=== PATIENT | male | born 1960 | race Caucasian/White ===

== ENCOUNTER 2017-03-08 20:21 | Emergency (ER) | payer MEDICAID ==
[2017-03-08] MEDS ORDERED: predniSONE 20 MG TAB PO ONE (20:30)
[2017-03-08] MEDS ORDERED: diphenhydrAMINE 25 MG CAP PO ONE (20:30)
[2017-03-08] MEDS ORDERED: FAMOTIDINE 20 MG TAB PO ONE (20:30)
--- NOTE | 2017-03-08 20:33 | EDPHY ---
H & P Stated Complaint: periorbital swelling and itchiness since 10am after rubbing sunscreen - Personal History Current Tetanus Diphtheria and Acellular Pertussis (TDAP): Yes - Medical/Surgical History Hx Asthma: No Hx Chronic Respiratory Disease: No Hx Diabetes: No Hx Cardiac Disease: No Hx Renal Disease: No Hx Cirrhosis: No Hx Alcoholism: No Hx HIV/AIDS: No Hx Splenectomy or Spleen Trauma: No Other PMH: denies - Social History Smoking Status: Heavy smoker Time Seen by Provider: 03/08/17 20:25 HPI/ROS: CHIEF COMPLAINT: periorbital edema HISTORY OF PRESENT ILLNESS: 56-year-old homeless male arrives via ambulance complaining of periorbital edema after he rubbed sunscreen onto his face and accidentally got some into his eyes this morning. He notes that he has had this periorbital edema for the whole day however [facility] they called 911. At no point has experienced respiratory complaints. No abdominal pain. No nausea or vomiting. No pain with extraocular movements. No exposure to high speed projectiles. No visual acuity changes. PRIMARY CARE PROVIDER: [facility] REVIEW OF SYSTEMS: A ten point review of systems was performed and is negative with the exception of the items mentioned in the HPI PAST MEDICAL & SURGICAL HISTORY: No pertinent medical or surgical history SOCIAL HISTORY:homeless PHYSICAL EXAM (Prior to examination, patient consented to physical exam, hands were washed and my usual and customary physical exam procedures followed) 1) GENERAL: Well-developed, well-nourished, alert and oriented. Appears to be in no acute distress. 2) HEAD: Normocephalic, atraumatic 3) HEENT: bilateral periorbital edema noted with no induration no erythema. Extraocular movements are present with no pain with extraocular movements, no proptosis. No facial crepitus. No lesions no vesicles. Pupils equal, round, reactive to light bilaterally. Sclera anicteric. Nasopharynx, oropharynx, clear, no lesions. Ears bilaterally with normal tympanic membranes. 4) NECK: Full range of motion, no meningeal signs. 5) LUNGS: Clear auscultation bilaterally, no wheezes, no rhonchi, no retractions. 6) HEART: Regular rate and rhythm, no murmur, no heave, no gallop. 7) ABDOMEN: No guarding, no rebound, no focal tenderness, 8) MUSCULOSKELETAL: No peripheral edema or discoloration. 9) BACK: no visual or palpable abnormality. 10) SKIN: No rash, no petechiae. DIFFERENTIAL DIAGNOSIS: no particular include but limited to contact dermatitis, anaphylaxis, urticaria, angioedema (Fly Lerma) Constitutional: Initial Vital Signs Temperature (C) 36.8 C 03/08/17 20:26 Heart Rate 84 03/08/17 20:26 Respiratory Rate 18 03/08/17 20:26 Blood Pressure 113/74 03/08/17 20:26 O2 Sat (%) 95 03/08/17 20:26 O2 Delivery Mode Room Air Allergies/Adverse Reactions: No Known Allergies Allergy (Unverified 03/08/17 20:26) Home Medications: Medication Instructions Recorded predniSONE [Prednisone] 20 mg PO DAILY #9 tablet 03/08/17 Medical Decision Making ED Course/Re-evaluation: 8:30 p.m.: Patient will be given oral H1 H2 blockers, prednisone observed in the ER for period of time. Do not think that epinephrine currently indicated. Doubt angioedema. I think his symptoms are more likely secondary to localized contact dermatitis. 9 p.m.: Re-evaluation, feeling improvement.lungs clear bilaterally 9:30 p.m.: Re-evaluation, feeling improvement, lungs clear bilaterally 10:01 p.m.: Re-evaluation, Feeling improvement, lungs clear bilaterally, doubt anaphylaxis, doubt urticaria, doubt infectious etiology such as cellulitis or zoster. Recommend caution with topical products in the future. He feels comfortable being discharged. (Fly Lerma) Other Provider: The patient was evaluated and managed by the Physician [employer]er/ Nurse Practitioner. My co-signature indicates that I have reviewed this chart and I agree with the findings and plan of care as documented. I am the secondary supervising physician. (Aura Yates) - Data Points Medications Given: Discontinued Medications Diphenhydramine HCl (Benadryl) 50 mg PO EDNOW ONE Stop: 03/08/17 20:31 Last Admin: 03/08/17 20:35 Dose: 50 mg Famotidine (Pepcid) 40 mg PO EDNOW ONE Stop: 03/08/17 20:31 Last Admin: 03/08/17 20:36 Dose: 40 mg Prednisone (Prednisone) 60 mg PO EDNOW ONE Stop: 03/08/17 20:31 Last Admin: 03/08/17 20:34 Dose: 60 mg Departure - Departure Disposition: Home, Routine, Self-Care Clinical Impression: Contact dermatitis Qualifiers: Contact dermatitis type: irritant Contact dermatitis trigger: cosmetics Qualified Code(s): L24.3 - Irritant contact dermatitis due to cosmetics Condition: Good Instructions: Contact Dermatitis (ED) Additional Instructions: Return to the ER if you develop pain with eye movement, facial swelling, redness or abnormal warmth your face, skin lesions, or any other symptoms that concern you. Please be cautious with application of topical products. Referrals: [facility],. [Clinic] - 1-2 days without fail Prescriptions: predniSONE [Prednisone] 20 mg PO DAILY #9 tablet
[2017-03-08] MEDS ORDERED: FAMOTIDINE 20 MG TAB ONE (20:37)
[2017-03-08 23:09] VITALS: BP 124/86; PULSE 82; RESP 20; TEMP 97.9; O2SAT 94
== END 2017-03-08 22:18 | disposition home or self-care (01) ==
DX: L24.3 Irritant contact dermatitis due to cosmetics (principal); F17.200 Nicotine dependence, unspecified, uncomplicated

== ENCOUNTER 2017-06-05 09:13 | Emergency (ER) | payer MEDICAID ==
[~2017-06-05 09:13] MED LIST: PERMETHRIN 5% 60 GM CREAM TP SCH
[2017-06-05 09:33] VITALS: BP 214/198; PULSE 86; RESP 16; TEMP 98.2; O2SAT 94
--- NOTE | 2017-06-05 10:03 | EDPHY ---
H & P Time Seen by Provider: 06/05/17 09:49 HPI/ROS: CHIEF COMPLAINT: Skin rash HISTORY OF PRESENT ILLNESS: Itchy skin rash for a week and half. Torso and arms but not palms and soles. Patient wonders if he might have scabies. No fever or chills. REVIEW OF SYSTEMS: No cough or shortness of breath. No tongue or lip or throat swelling. No fevers or chills. Has open wound on the left small I and 4th toes. A comprehensive 10 point review of systems is otherwise negative aside from elements mentioned in the history of present illness. PAST MEDICAL HISTORY: Negative Social history: Staying at shelters General Appearance: Alert and conversant, cooperative. Eyes: No scleral icterus. ENT, Mouth: Normal mucous membranes. No angioedema or oral lesions. Respiratory: Normal respiratory effort, breath sounds equal, lungs are clear to auscultation. Cardiovascular: Regular rate and rhythm. Gastrointestinal: Abdomen is soft and non tender. Neurological: Alert and oriented x3. Normally conversant. Face symmetric, normal movement and sensation in all extremities. Skin: Patient is scattered excoriations, linear fashion across his abdomen, no vesicles. No erythema or tenderness to palpation or lymphangitis. Confluent in a couple of areas in his torso but not on his hands or feet or below his knees. He is to shallow open wounds on the lateral surface of his left small and 4th toe to appear from rubbing against issue with do not have pus or discharge or surrounding redness or lymphangitis. Musculoskeletal: No peripheral edema and no joint swelling. Psychiatric: Not agitated. Emergency Department course/MDM: Does not appear to have cellulitis. I think it is unlikely to be zoster or chickenpox. Unlikely to be folliculitis. Skin rash could be multiple things, scabies discussed as possibility. Will trial of Elimite, advised primary care follow-up if continues to have rash , mandatory for hypertension. Smoking Status: Heavy smoker Constitutional: Initial Vital Signs Temperature (C) 36.8 C 06/05/17 09:31 Heart Rate 86 06/05/17 09:31 Respiratory Rate 16 06/05/17 09:31 Blood Pressure 214/198 H 06/05/17 09:31 O2 Sat (%) 94 06/05/17 09:31 O2 Delivery Mode Room Air Allergies/Adverse Reactions: No Known Allergies Allergy (Unverified 03/08/17 20:26) Home Medications: Medication Instructions Recorded predniSONE [Prednisone] 20 mg PO DAILY #9 tablet 03/08/17 Permethrin 5% [Elimite 5%] 1 jose TP ONCE #1 cream 06/05/17 Departure - Departure Disposition: Home, Routine, Self-Care Clinical Impression: Skin rash Hypertension Qualifiers: Hypertension type: unspecified Qualified Code(s): I10 - Essential (primary) hypertension Condition: Good Instructions: Permethrin (On the skin), Scabies (ED), Acute Rash (ED) Additional Instructions: wash clothes hot water. followup clinic 1 week for blood pressure and rash Referrals: [facility],. [Clinic] - 5-7 days, call for appt. Prescriptions: Permethrin 5% [Elimite 5%] 1 jose TP ONCE #1 cream
== END 2017-06-05 10:33 | disposition home or self-care (01) ==
DX: R21 Rash and other nonspecific skin eruption (principal); I10 Essential (primary) hypertension; F17.200 Nicotine dependence, unspecified, uncomplicated

== ENCOUNTER 2017-06-08 17:19 | Emergency (ER) | payer MEDICAID ==
[2017-06-08 17:27] VITALS: RESP 18; O2SAT 94
--- NOTE | 2017-06-08 17:32 | EDPHY ---
HPI/HX/ROS/PE/MDM Narrative: CHIEF COMPLAINT: Fall HISTORY OF PRESENT ILLNESS: This patient is a 57 year old male arriving via EMS following a witnessed fall shortly prior to arrival. Per EMS report, a bystander saw him fall face-first into a peaked rock near the [place]. Positive loss of consciousness. The patient sustained lacerations to his forehead and scalp, but EMS noted no other trauma on rapid exam. The patient endorsed consumption of one pint of alcohol today. EMS reports the patient has foot numbness, but this is chronic and unchanged from usual. The patient endorses head and neck pain. He denies any illicit drug use. He has no further complaints at this time. Of note the patient was recently evaluated in this emergency department and treated for scabies. He reports he has not taken the treatment for scabies. He continues to have active scabies. REVIEW OF SYSTEMS: Aside from elements discussed in the HPI, a comprehensive 10-point review of systems was reviewed and is negative. PAST MEDICAL HISTORY: 1. Scabies 2. Alcoholism SOCIAL HISTORY: Transient. Lives in [place]. Heavy alcohol use. VITAL SIGNS: Reviewed by me; see NN. GENERAL: Well-developed, well-nourished, disheveled, clothing has been removed by EMS. No respiratory distress. In a cervical collar. HEENT: Head: Two superficial lacerations to crown of head. Face: Abrasion over center of forehead. Dried blood and abrasion over right eyebrow. PERRL, EOMI, no nystagmus. Oropharynx: No trauma, normal occlusion. Neck: Cervical collar is in place. Nontender to palpation, no adenopathy. CHEST: Nontender, no subcutaneous air palpable. LUNGS: Clear to auscultation bilaterally, breath sounds are equal. CARDIAC: Regular rate and rhythm, no rubs, murmurs or gallops. ABDOMEN: Soft, nontender, nondistended, bowel sounds normal. BACK: No CVA tenderness, no spinal tenderness. EXTREMITIES: Abrasion on the knees. Normal range of motion. No deformity. PULSES: 2+ and equal throughout. NEURO: Alert and oriented x3, cranial nerves are intact throughout, normal motor , normal sensation. SKIN: Warm and dry, diffuse macular rash in a linear distribution with excoriations on the skin. Portions of this note were transcribed by a phlebotomist medical lab assistant. I personally performed a history, physical exam, medical decision making, and confirmed accuracy of information the transcribed note. ED Course: 17:18 [facility] at bedside Patient has been placed on a 5 day [facility] hold by police. 19:[address] Dang, radiologist. CT head and cervical spine negative for acute processes. Cervical spine cleared. Abrasions cleaned. Unable to discharge the patient to the [facility] due to his scabies. Lice have also been found on the patient. He has showered and applied topical treatment for scabies in lice which needs to be washed off 8-14 hours after application. Clean clothing was provided to the patient. Patient was clinically sober at the time of discharge. He has been up and ambulatory. He was able to shower himself without additional complaints. He understands the importance of completing his scabies and lice treatment. MDM: Differential diagnosis for the patient's head injury was considered including but not limited to concussion, skull fracture, intraparenchymal contusion, subarachnoid, subdural and epidural hematoma. Differential diagnosis of the patient's rash was considered including but not limited to allergic reaction, urticaria, viral exanthem, scabies, lice, bed bugs , cellulitis. - Data Points Imaging Results: CT Head: Impression: Nothing acute. Findings and recommendations discussed with Aura Yates MD at 1805 hour, 06/08/2017. Final report concurs with initial preliminary interpretation. Dictated By: Rajwinder Dang MD CT Cervical Spine: Impression: No fracture or evidence of ligamentous injury. Degenerative cervical spine disease. Comment: Case was discussed with Dr. Aura Yates at 1913 hours. Dictated By: Rajwinder Dang MD Imaging: Discussed imaging studies w/ order caller Radiologist, I viewed and interpreted images myself Medications Given: Discontinued Medications Permethrin (Lice Treatment) 59 ml TP EDNOW ONE Stop: 06/08/17 19:46 Last Admin: 06/08/17 19:39 Dose: 1 btl Permethrin (Elimite 5%) 1 jose TP EDNOW ONE Stop: 06/08/17 19:46 Last Admin: 06/08/17 20:20 Dose: 1 jose General Initial Vital Signs: Initial Vital Signs Temperature (C) 36.5 C 06/08/17 17:22 Heart Rate 89 06/08/17 17:22 Respiratory Rate 18 06/08/17 17:22 Blood Pressure 104/64 06/08/17 17:22 O2 Sat (%) 94 06/08/17 17:22 O2 Delivery Mode Room Air Allergies/Adverse Reactions: No Known Allergies Allergy (Unverified 03/08/17 20:26) Home Medications: Medication Instructions Recorded predniSONE [Prednisone] 20 mg PO DAILY #9 tablet 03/08/17 Permethrin 5% [Elimite 5%] 1 jose TP ONCE #1 cream 06/05/17 Departure - Departure Disposition: Home, Routine, Self-Care Clinical Impression: Scabies Scalp abrasion Qualifiers: Encounter type: initial encounter Qualified Code(s): S00.01XA - Abrasion of scalp, initial encounter Closed head injury Qualifiers: Encounter type: initial encounter Qualified Code(s): S09.90XA - Unspecified injury of head, initial encounter Alcohol intoxication Qualifiers: Complication of substance-induced condition: uncomplicated Qualified Code(s): F10.920 - Alcohol use, unspecified with intoxication, uncomplicated Condition: Good Instructions: Head Injury (ED), Scabies (ED), Body Lice (ED), Contusion in Adults (ED) Additional Instructions: Please avoid alcohol. Follow-up with a primary care physician within 72 hours. Return to the emergency department for worsening of intractable headache, nausea , vomiting, numbness, weakness, worsening neck pain, fever or other concerns. Use Tylenol and/or ibuprofen as needed for headache or body aches. Referrals: [facility] [Outside] - As per Instructions [facility],. [Clinic] - As per Instructions Maria C Claros MD [Medical Doctor] - As per Instructions Report Scribed for: Aura Yates Report Scribed by: Lotus Sullivan Date of Report: 06/08/17 Time of Report: 17:37
[2017-06-08] MEDS ORDERED: PERMETHRIN 1% 59 ML LOTION (Hair rinse) TP ONE ×2 (19:45)
[2017-06-08] MEDS ORDERED: PERMETHRIN 5% 60 GM CREAM TP ONE ×2 (19:45)
[2017-06-08 20:22] VITALS: BP 120/74; PULSE 99; TEMP 98.2
== END 2017-06-08 21:39 | disposition home or self-care (01) ==
LOC: EDUNIT#
DX: S00.01XA Abrasion of scalp, initial encounter (principal); F10.920 Alcohol use, unspecified with intoxication, uncomplicated; B86 Scabies; W18.39XA Other fall on same level, initial encounter
CPT/HCPCS: L0172

== ENCOUNTER 2017-06-11 07:42 | Emergency (ER) | payer MEDICAID ==
[2017-06-11 07:49] VITALS: RESP 18; O2SAT 95
--- NOTE | 2017-06-11 08:17 | EDPHY ---
H & P Stated Complaint: blisters on both feet HPI/ROS: Chief complaint: Blisters on feet History of present illness: This is a 57-year-old male who is homeless who presents to the emergency department for evaluation of blisters on his feet. He states he has had blisters for very long time. They are painful and it makes it difficult to ambulate. He is wondering if there is anything we can do. He also has noted a rash on his body for the last 2 weeks as itchy. Denies other associated signs or symptoms. Review of systems: A 10 point review of systems was obtained and other than described above was negative - Personal History Current Tetanus/Diphtheria Vaccine: Yes - Medical/Surgical History Hx Asthma: No Hx Chronic Respiratory Disease: No Hx Diabetes: No Hx Cardiac Disease: No Hx Renal Disease: No Hx Cirrhosis: No Hx Alcoholism: No Hx HIV/AIDS: No Hx Splenectomy or Spleen Trauma: No Other PMH: PSH:NONE. PSH:NONE - Social History Smoking Status: Heavy smoker - Physical Exam Exam: General Appearance: Alert, nontoxic Eyes: Pupils equal and round no pallor or injection. ENT, Mouth: Mucous membranes moist. Respiratory: There are no retractions, lungs are clear to auscultation. Cardiovascular: Regular rate and rhythm. Gastrointestinal: Abdomen is soft and non tender, no masses, bowel sounds normal. Neurological: Alert. Strength and sensation intact and symmetrical. Skin: Patient is a diffuse rash to his body appears to be consistent with small bug bites. Body lice are noted. A few small blisters are noted on his feet without evidence of secondary infection. Musculoskeletal: Neck is supple non tender. Extremities are symmetrical, full range of motion. Psychiatric: There is no agitation. Constitutional: Initial Vital Signs Temperature (C) 36.3 C 06/11/17 07:47 Heart Rate 97 06/11/17 07:47 Respiratory Rate 18 06/11/17 07:47 Blood Pressure 105/65 06/11/17 07:47 O2 Sat (%) 95 06/11/17 07:47 O2 Delivery Mode Room Air Allergies/Adverse Reactions: No Known Allergies Allergy (Verified 06/11/17 07:45) Home Medications: Medication Instructions Recorded FLUoxetine 06/11/17 Permethrin 5% [Elimite 5%] 60 jose TP ONCE #1 cream 06/11/17 Medical Decision Making ED Course/Re-evaluation: Patient seen under the supervision of my primary supervising physician Dr. Yomaira Santana. Patient presents to the emergency department for blisters on his feet as well as a rash. He does appear to have blisters without evidence of secondary complications such as infection. He is provided with clean socks. He also has a diffuse rash on his body, body lice are noted which is likely the cause of the rash. He has been given a bottle of permethrin cream. Case management has been involved to help patient shower, he was given lice shampoo, clean clothes and help to follow-up where he can get himself cleaned up. Return precautions given. Differential Diagnosis: Included but not limited to blisters, cellulitis, athlete's feet as well as a parasitic infection causing rash, contact dermatitis, allergic reaction - Data Points Medications Given: Discontinued Medications Pyrethrins/Piperonyl Butoxide (Lice Combo Kit) 118 ml TP ONCE ONE Stop: 06/11/17 12:16 Last Admin: 06/11/17 12:58 Dose: 1 btl Departure - Departure Disposition: Home, Routine, Self-Care Clinical Impression: Rash, Blisters of multiple sites Condition: Good Instructions: Permethrin (On the skin), Body Lice (ED), Acute Rash (ED), Blister (ED), Acute Wounds (ED) Additional Instructions: [facility] as planned. If symptoms worsen or new symptoms develop return to the emergency room for recheck Referrals: NONE *PRIMARY CARE P,. [Primary Care Provider] - As per Instructions [facility],. [Clinic] - As per Instructions Prescriptions: Permethrin 5% [Elimite 5%] 60 jose TP ONCE #1 cream
[2017-06-11 11:03] VITALS: BP 104/67; PULSE 71; TEMP 97.7
[2017-06-11] MEDS ORDERED: LICE KILLING SHAMPOO 118 ML TP ONE (12:15)
--- NOTE | 2017-06-11 13:54 | ASDISCHSUM ---
Discharge Information Plan Status:Homeless/[facility] Medically Cleared to Leave: Discharge Date:06/11/2017 01:45 PM CM D/C Disposition:Streets (Homeless) ADT D/C Disposition:Home, Routine, Self-Care Projected Discharge Date:06/11/2017 01:45 PM Transportation at D/C:Bus Ticket Discharge Delay Reason: Follow-Up Date:06/11/2017 01:45 PM Discharge Slot: Final Diagnosis: Placement Information Patient Contact Information Contact Name:CELI Relationship: Address: Home Phone: Work Phone: City: Alternate Phone: State/Zip Code: Email: Financial Information Financial Class: Primary Plan Desc:[employer] [place] Primary Plan Number:[id number] Secondary Plan Desc: Secondary Plan Number: Assessment Information [facility] CM Progress Note CM Note CM Note Notes: This CM requested to assist patient with homeless resources and a place to stay tonight, including access to a shower. Spoke with patient and he says he has been staying at the [facility] [place] [facility] and that they do not have showers available. Patient says he would try to make it to the [facility] for their morning services (shower, laundry,etc) so he can continue to shower and apply treatment but he said that he can't leave [facility] until around 8am and that is when morning services end at [facility]. This CM to call and speak to [facility] and [facility] staff about other options for patient to continue treatment for lice and scabies. Patient assisted to the shower and provided Rid lice shampoo and instructions including combing through his hair. Patient also instructed on discarding quintana, etc. Patient was also provided permethrin lotion and instructions to apply after shower and towel drying. Patient also provided a new clean set of clothes including t-shirt, pants and socks. Patient placed personal clothing and item into a patient's belongings bag and tied it shut and understands he should not open it until he is somewhere he can wash them in hot water with soap. Patient also provided a bus pass to the [facility] [place] [facility] for tonight. Patient has already completed the Coordinated Entry assessment and has been staying [facility]. Patient states he has plans to follow up [facility]. Date Signed: 06/11/2017 01:52 PM Electronically Signed By:Anel Arroyo RN LACE LACE Acuity / Level of Care Answers: No. Emergency dept visits in Answers: 4+ last 6 months Score: 4 Date Signed: 06/11/2017 01:53 PM Electronically Signed By:Anel Arroyo RN Intervention Information
--- NOTE | 2017-06-11 13:54 | ASDISCHSUM ---
Discharge Information Plan Status:Homeless/[facility] Medically Cleared to Leave: Discharge Date:06/11/2017 01:45 PM CM D/C Disposition:Streets (Homeless) ADT D/C Disposition:Home, Routine, Self-Care Projected Discharge Date:06/11/2017 01:45 PM Transportation at D/C:Bus Ticket Discharge Delay Reason: Follow-Up Date:06/11/2017 01:45 PM Discharge Slot: Final Diagnosis: Placement Information Patient Contact Information Contact Name:CELI Relationship: Address: Home Phone: Work Phone: City: Alternate Phone: State/Zip Code: Email: Financial Information Financial Class: Primary Plan Desc:MEDICA[employer] [place] [employer] Primary Plan Number:[id number] Secondary Plan Desc: Secondary Plan Number: Assessment Information [facility] CM Progress Note CM Note CM Note Notes: This CM requested to assist patient with homeless resources and a place to stay tonight, including access to a shower. Spoke with patient and he says he has been staying at the [facility] [place] [facility] and that they do not have showers available. Patient says he would try to make it to the [facility] for their morning services (shower, laundry,etc) so he can continue to shower and apply treatment but he said that he can't leave the [facility] until around 8am and that is when morning services end at [facility]. This CM to call and speak to [facility] and [facility] staff about other options for patient to continue treatment for lice and scabies. Patient assisted to the shower and provided Rid lice shampoo and instructions including combing through his hair. Patient also instructed on discarding quintana, etc. Patient was also provided permethrin lotion and instructions to apply after shower and towel drying. Patient also provided a new clean set of clothes including t-shirt, pants and socks. Patient placed personal clothing and item into a patient's belongings bag and tied it shut and understands he should not open it until he is somewhere he can wash them in hot water with soap. Patient also provided a bus pass to the [facility] [place] [facility] for tonight. Patient has already completed the Coordinated Entry assessment and has been staying at the [facility]. Patient states he has plans to follow up [facility]. Date Signed: 06/11/2017 01:52 PM Electronically Signed By:Anel Arroyo RN LACE LACE Acuity / Level of Care Answers: No. Emergency dept visits in Answers: 4+ last 6 months Score: 4 Date Signed: 06/11/2017 01:53 PM Electronically Signed By:Anel Arroyo RN Intervention Information
--- NOTE | 2017-06-11 13:54 | ASDISCHSUM ---
Discharge Information Plan Status:Homeless/Fdc Medically Cleared to Leave: Discharge Date:06/11/2017 01:45 PM CM D/C Disposition:Streets (Homeless) ADT D/C Disposition:Home, Routine, Self-Care Projected Discharge Date:06/11/2017 01:45 PM Transportation at D/C:Bus Ticket Discharge Delay Reason: Follow-Up Date:06/11/2017 01:45 PM Discharge Slot: Final Diagnosis: Placement Information Patient Contact Information Contact Name:CELI Relationship: Address: Home Phone: Work Phone: City: Alternate Phone: State/Zip Code: Email: Financial Information Financial Class: Primary Plan Desc:MEDICAID HEALTH FIRST [place] OP Primary Plan Number:[id number] Secondary Plan Desc: Secondary Plan Number: Assessment Information [facility] CM Progress Note CM Note CM Note Notes: This CM requested to assist patient with homeless resources and a place to stay tonight, including access to a shower. Spoke with patient and he says he has been staying at the [facility] [place] [facility] and that they do not have showers available. Patient says he would try to make it to the [facility] for their morning services (shower, laundry,etc) so he can continue to shower and apply treatment but he said that he can't leave the [facility] until around 8am and that is when morning services end at [facility]. This CM to call and speak to [facility] and [facility] staff about other options for patient to continue treatment for lice and scabies. Patient assisted to the shower and provided Rid lice shampoo and instructions including combing through his hair. Patient also instructed on discarding quintana, etc. Patient was also provided permethrin lotion and instructions to apply after shower and towel drying. Patient also provided a new clean set of clothes including t-shirt, pants and socks. Patient placed personal clothing and item into a patient's belongings bag and tied it shut and understands he should not open it until he is somewhere he can wash them in hot water with soap. Patient also provided a bus pass to the [facility] [place] [facility] for tonight. Patient has already completed the Coordinated Entry assessment and has been staying at the [facility]. Patient states he has plans to follow up with [facility] tomorrow. Date Signed: 06/11/2017 01:52 PM Electronically Signed By:Anel Arroyo RN LACE LACE Acuity / Level of Care Answers: No. Emergency dept visits in Answers: 4+ last 6 months Score: 4 Date Signed: 06/11/2017 01:53 PM Electronically Signed By:Anel Arroyo RN Intervention Information
== END 2017-06-11 13:45 | disposition home or self-care (01) ==
DX: R21 Rash and other nonspecific skin eruption (principal); F17.200 Nicotine dependence, unspecified, uncomplicated

== ENCOUNTER 2017-11-12 14:32 | Emergency (ER) | payer MEDICAID ==
[2017-11-12 14:46] VITALS: BP 128/86
--- NOTE | 2017-11-12 15:58 | EDPHY ---
H & P Smoking Status: Heavy smoker Time Seen by Provider: 11/12/17 15:34 HPI/ROS: CHIEF COMPLAINT: Pruritic rash HISTORY OF PRESENT ILLNESS: 57-year-old homeless male presents to the emergency department with pruritic rash. The patient states that he has"body lice." He states that the intensely itchy. He has had this for months. No treatment. No chest pain or difficulty breathing. No abdominal pain. No fevers or chills. No pain associated with the rash. REVIEW OF SYSTEMS: Constitutional: No fever, no chills. Eyes: No double or blurry vision. ENT: No sore throat. Respiratory: No cough, no shortness of breath. Cardiac: No chest pain. Gastrointestinal: No abdominal pain, vomiting or diarrhea. Genitourinary: No dysuria. Musculoskeletal: No neck or back pain. Skin: Pruritic rash as above Neurological: No headache. (Becca Thompson) Past Medical/Surgical History: Negative (Becca Thompson) Social History: Homeless (Becca Thompson) Physical Exam: General Appearance: Alert, no distress. Afebrile. Eyes: Pupils equal and round. Extraocular motions are all intact. ENT: Mouth: Mucous membranes moist. Respiratory: No wheezing, rhonchi, or rales, lungs are clear to auscultation. Cardiovascular: Regular rate and rhythm. Gastrointestinal: Abdomen is soft and nontender, no masses, no rebound or guarding, bowel sounds normal. Neurological: Alert and oriented x 3, cranial nerves II through XII grossly intact Skin: Diffuse macular papular rash which is erythematous. There is numerous areas of excoriation. No surrounding redness or signs of cellulitis or infection. No purulent drainage. Musculoskeletal: Nontender to palpate along the cervical, thoracic or lumbar spine. Neck is supple. Extremities: Full range of motion and no peripheral edema. Psychiatric: Patient is oriented X 3, there is no agitation. (Becca Thompson) Constitutional: Initial Vital Signs Temperature (C) 37 C 11/12/17 14:44 Heart Rate 85 11/12/17 14:44 Respiratory Rate 18 11/12/17 14:44 Blood Pressure 128/86 H 11/12/17 14:44 O2 Sat (%) 93 11/12/17 14:44 O2 Delivery Mode Room Air Allergies/Adverse Reactions: No Known Allergies Allergy (Verified 11/12/17 14:43) Home Medications: Medication Instructions Recorded Permethrin 5% [Elimite 5%] 60 gr TOP DAILY #0 gm 11/12/17 Medical Decision Making ED Course/Re-evaluation: 57-year-old homeless male presents with pruritic rash. Clinically I think this patient likely has scabies. He will be treated with permethrin cream I also encouraged him to wash his clothing and linens in hot and dry them in hot air drier machine operator. I encouraged him not itch at the area. I also explained that I do not think antibiotics are indicated. I do not appreciate any signs of infection. Permethrin cream was filled through the [facility]. (Becca Thompson) The patient was evaluated and managed by the physician assistant designer. I have reviewed this chart and I agree with the findings and plan of care as documented , as indicated by my signature. I am the secondary supervising physician. ( Betsey Henao) Differential Diagnosis: Including but not limited to scabies, contact dermatitis, cellulitis (Becca Thompson) Departure - Departure Disposition: Home, Routine, Self-Care Clinical Impression: Scabies Condition: Good Instructions: Permethrin (On the skin), Scabies (ED) Additional Instructions: Apply permethrin cream head to toe and wash off after 814 hr. You should be drying your clothing and linens in hot water and drying them in a hot air drier machine operator to prevent reinfection. Referrals: [facility],. [Clinic] - 2-3 days without fail Prescriptions: Permethrin 5% [Elimite 5%] 60 gr TOP DAILY #0 gm
== END 2017-11-12 16:32 | disposition home or self-care (01) ==
DX: B86 Scabies (principal); F17.200 Nicotine dependence, unspecified, uncomplicated

== ENCOUNTER 2018-01-01 07:08 | Inpatient (IN) | payer MEDICAID ==
--- NOTE | 2018-01-01 07:59 | EDPHY ---
H & P Stated Complaint: R 4th toe wound Time Seen by Provider: 01/01/18 07:45 HPI/ROS: CHIEF COMPLAINT: Right foot infection HISTORY OF PRESENT ILLNESS: 57-year-old homeless male presents with a right foot infection. Onset of atraumatic right foot pain 5 days ago. Gradually increasing moderate right foot pain, now having difficulty ambulating b/c of pain. Associated with an open wound of the 4th toe (of unknown duration). Watery drainage from wound. No fever or chills. REVIEW OF SYSTEMS: complete 10 point ROS negative except at noted in the HPI - Personal History Current Tetanus/Diphtheria Vaccine: Yes Current Tetanus Diphtheria and Acellular Pertussis (TDAP): Yes - Medical/Surgical History Hx Asthma: No Hx Chronic Respiratory Disease: No Hx Diabetes: No Hx Cardiac Disease: No Hx Renal Disease: No Hx Cirrhosis: No Hx Alcoholism: No Hx HIV/AIDS: No Hx Splenectomy or Spleen Trauma: No Other PMH: PSH:NONE. PSH:NONE - Social History Smoking Status: Heavy smoker Alcohol Use: Heavy Drug Use: None Additional Social History: homeless - Physical Exam Exam: General Appearance: Alert, cooperative Eyes: Pupils equal and round, no conjunctival pallor ENT, Mouth: Mucous membranes moist Neck: Normal inspection Respiratory: Lungs are clear to auscultation Cardiovascular: Regular rate and rhythm Gastrointestinal: Abdomen is soft and nontender Neurological: A&O, nonfocal exam Skin: Warm and dry Extremities: Right foot-ulceration on the lateral aspect of the 4th toe, 1.5 cm in diameter, with associated erythema, warmth and tenderness of the 4th toe and dorsal aspect of foot, no fluctuance; rt ankle normal inspection, ROM without pain; no calf swelling or tenderness Vascular: 2+ pedal pulses Psychiatric: Flat affect Constitutional: Initial Vital Signs Temperature (C) 37 C 01/01/18 07:15 Heart Rate 87 01/01/18 07:15 Respiratory Rate 20 01/01/18 07:15 Blood Pressure 106/65 01/01/18 07:15 O2 Sat (%) 94 01/01/18 07:15 O2 Delivery Mode Room Air Allergies/Adverse Reactions: No Known Allergies Allergy (Verified 01/01/18 07:15) Home Medications: Medication Instructions Recorded ARIPiprazole [Abilify 5 mg (*)] 5 mg PO DAILY 01/01/18 Medical Decision Making - Diagnostics Imaging Results: Foot Xray: no fx, FB or evidence of osteomyelitis Imaging: I viewed and interpreted images myself ED Course/Re-evaluation: This patient presents with a toe ulceration and cellulitis of the foot. I do not think that he will be able to take care of this as an outpatient. For this reason, I will admit him for IV antibiotics and wound care. He does not meet SIRS criteria. Ancef 1 g IV given. The hospitalist service was consulted for admission. Developed a fever in ED; meets SIRS criteria with fever and leukocytosis, lactate normal. 0900: temp 38.5, WBC 14.7; meets SIRS criteria, lactate ordered. Tylenol 650mg orally given. Differential Diagnosis: includes though not limited to abscess, neurovascular compromise, osteomyelitis , lymphangitis, DVT - Data Points Medications Given: Acetaminophen (Tylenol) 650 mg PO Q4HRS PRN PRN Reason: Pain, Mild/Fever, Can Take PO Stop: 06/30/18 13:01 Last Admin: 01/02/18 08:05 Dose: 650 mg Enoxaparin Sodium (Lovenox) 40 mg SC DAILY RM Stop: 07/01/18 08:59 Last Admin: 01/03/18 09:19 Dose: 40 mg Cefazolin Sodium/Dextrose (Ancef 2 Gm) 100 mls @ 200 mls/hr IV Q8H RM PRN Reason: Protocol Stop: 01/31/18 16:59 Last Admin: 01/03/18 09:19 Dose: 100 mls Multivitamins (Tab-A-Shekhar) 1 each PO DAILY RM Stop: 06/30/18 17:59 Last Admin: 01/03/18 09:18 Dose: 1 each Naproxen (Aleve) 220 mg PO TID RM Stop: 07/01/18 08:59 Last Admin: 01/03/18 09:18 Dose: 220 mg Nicotine (Nicoderm Cq) 21 mg TD DAILY RM Stop: 07/01/18 20:59 Last Admin: 01/03/18 09:19 Dose: 21 mg Oxycodone HCl (Oxycodone Ir) 10 mg PO Q6H PRN PRN Reason: Pain, Severe Able to Take PO Stop: 01/12/18 17:45 Last Admin: 01/03/18 01:48 Dose: 10 mg Thiamine HCl (Vitamin B-1) 100 mg PO DAILY RM Stop: 06/30/18 16:59 Last Admin: 01/03/18 09:18 Dose: 100 mg Tramadol HCl (Ultram) 50 mg PO Q6HRS PRN PRN Reason: Pain, Moderate Able to Take PO Stop: 07/01/18 08:14 Last Admin: 01/03/18 09:18 Dose: 50 mg Discontinued Medications Acetaminophen (Tylenol) 650 mg PO EDNOW ONE Stop: 01/01/18 08:56 Last Admin: 01/01/18 08:59 Dose: 650 mg Cefazolin Sodium/Dextrose (Ancef 1 Gm (Premix)) 50 mls @ 200 mls/hr IV EDNOW ONE PRN Reason: Protocol Stop: 01/01/18 08:07 Last Admin: 01/01/18 08:38 Dose: 50 mls Sodium Chloride (Ns) 1,000 mls @ 0 mls/hr IV ONCE ONE; Wide Open PRN Reason: Protocol Stop: 01/01/18 09:03 Last Admin: 01/01/18 09:08 Dose: 1,000 mls Nicotine (Nicoderm Cq) 21 mg TD ONCE ONE Stop: 01/01/18 09:19 Last Admin: 01/01/18 09:26 Dose: 21 mg Departure - Departure Disposition: [facility] In[facility] Acute Clinical Impression: Cellulitis Qualifiers: Site of cellulitis: extremity Site of cellulitis of extremity: lower extremity Laterality: right Qualified Code(s): L03.115 - Cellulitis of right lower limb Condition: Fair
[2018-01-01 08:10] LABS: PLATELET COUNT 287 10^3/uL (150-400)
[2018-01-01] MEDS ORDERED: ACETAMINOPHEN 325 MG TAB PO ONE (08:55)
[2018-01-01] MEDS ORDERED: NS 1,000 ML IV ONE (09:02)
[2018-01-01] MEDS ORDERED: NICOTINE 21 MG/24 HR PATCH TD ONE (09:18)
[2018-01-01] MEDS ORDERED: ONDANSETRON 4 MG/2 ML VIAL IVP PRN (13:02)
[2018-01-01] MEDS ORDERED: ZOLPIDEM TARTRATE 5 MG TAB PO PRN (13:02)
[2018-01-01] MEDS ORDERED: ONDANSETRON DISINTEGRATING 4 MG TAB PO PRN (13:02)
--- NOTE | 2018-01-01 13:06 | PDGENHP ---
History and Physical History and Physical: CC: Ft pain and redness HISTORY: This patient has a homeless man who has been doing recently fairly well other than a few episodes of 6 gave ease in lice. However in last 5 days he has noticed some increasing pain and swelling and redness around his right 4th toe in today the right foot became swollen and painful. He thought this was an infection so came into the ER for evaluation and care. He has had a skin wound between the 3rd and 4th toes present for some time and he has been tending it with peroxide and trying to keep it as clean as possible. He has felt some fever symptoms today. He has no other new skin lesions and otherwise has felt healthy. The patient does drink about a pt of liquor a week, uses small amount marijuana , but uses no street drugs or IV drugs. ROS: A comprehensive 10 system review revealed no other significant findings PAST MEDICAL HISTORY: Hypertension Body lice Alcohol abuse FAMILY MEDICAL HISTORY: Unknown to the patient SOCIAL HISTORY: Homeless MEDICATIONS: The patients list has been reconciled by our clinical pharmacist in the EMR. I have reviewed the list and ordered appropriate medicines. PHYSICAL EXAMINATION: Vital Signs: Temperature 38.5 otherwise stable initial vital signs in the ER Yoker Machine Operator: Examination: General: The patient is somewhat unkempt but very pleasant and talkative, alert , oriented, good mentation, relaxed HEENT: normal Neck: no mass or jvd Resps: relaxed Lungs: clear breath sounds Heart: regular, no murmur Abdomen: soft, nondistended, nontender, +BS, no mass Upper Extremities: normal Lower Extremities: There is a remarkable cellulitis of the entirety of the right foot and ankle extending overall 5 toes, and coming up above both malleoli but not very far. The only skin lesion is a pressure related ulcer between the 3rd and 4th toes were a corn has eroded the skin. There are no signs at this time of any necrosis and there is nothing that looks like deep soft tissue infection no palpable fluid collections. Skin: warm, dry, good color No Bleeding or bruising Neurologic: normal speech/language, normal surgical appliance fitter, no focal weakness IV site: looks normal LABORATORY DATA: White blood cell count elevated with predominance in neutrophils, 14,000, otherwise unremarkable CBC Unremarkable basic metabolic panel except for mild hypernatremia at 1:46 a.m. RADIOLOGY STUDIES: X-rays of the foot were done in the ER and I reviewed the images, my interpretation: No evidence of fracture or infection of the bones ASSESSMENT: # acute cellulitis of the right foot and ankle complicated by fever # corn between the 3rd and 4th toes of the right foot leading to open skin wound which will need tending # homelessness, unable to manage wound care on his own sufficiently PLANS: Blood cultures were obtained in the ER This antibiotics were started with Ancef and I will continue that for now watch for his response Wound care for his corn related wound on the right toes, including padding to removed tension between the toes Wound care nurse consult DVT prophylaxis Will give thiamin replacement and multivitamin replacement and make sure that he is getting reasonable nutrition here I do not think he is at much risk for alcohol withdrawal but will watch that very closely I have reviewed the patient's case in detail with . I have reviewed the patient's past medical records as part of this assessment, including
[2018-01-01] MEDS: ACETAMINOPHEN 325 MG TAB PO PRN ×2 (13:39→21:05)
--- NOTE | 2018-01-01 15:35 | ASMTCMCOM ---
CM Note CM Note Notes: Pt was admitted with a R foot infection. He is homeless. Currently he is not on ABX. CM will follow for any d/c needs. Date Signed: 01/01/2018 03:35 PM Electronically Signed By:PEPITO Mcdowell
[2018-01-01] MEDS ORDERED: MULTIVITAMINS W-IRON (PEDS) 1 ML UDSYR PO SCH (17:00)
[2018-01-01] MEDS: ceFAZolin 2 GM/DEXTROSE 100 ML IV SCH (17:46)
[2018-01-01] MEDS: THIAMINE HCL 100 MG TAB PO SCH (17:52)
[2018-01-01] MEDS: MULTIVITAMINS 1 EACH TAB PO SCH (18:08)
[2018-01-02] MEDS: ceFAZolin 2 GM/DEXTROSE 100 ML IV SCH ×3 (01:23→17:36)
[2018-01-02] MEDS: THIAMINE HCL 100 MG TAB PO SCH (08:05)
[2018-01-02] MEDS: ACETAMINOPHEN 325 MG TAB PO PRN (08:05)
[2018-01-02] MEDS: MULTIVITAMINS 1 EACH TAB PO SCH (08:05)
[2018-01-02] MEDS: ENOXAPARIN 40 MG/0.4 ML SYR SC SCH (08:06)
--- NOTE | 2018-01-02 08:08 | HOSPPROG ---
Hospitalist Progress Note Assessment/Plan: DIAGNOSES: # acute cellulitis of the right foot and ankle complicated by fever # corn between the 3rd and 4th toes of the right foot leading to open skin wound which will need tending # homelessness, unable to manage wound care on his own sufficiently # alcohol abuse, felt unlikely to have acute severe withdrawal but likely with vitamin deficiencies malnutrition PLANS: * continue IV Ancef at this time * Keep leg elevated * Wound care * Will add some nonsteroidal anti-inflammatory and tramadol for pain * Increase activity as able * continue thiamin replacement at this time SUBJECTIVE: Still with pain, unchanged from yesterday, some diaphoresis no other new symptoms Nurses have noted no signs of significant withdrawal OBJECTIVE Vitals reviewed: T-max 38.2 degrees last evening, vitals otherwise stable Animal Cruelty Investigator, my review: Exam: alert oriented skin warm dry color ok resps not labored lungs clear BSs heart regular abd soft nondistended nontender, bowel sounds present limbs minimal improvement in the redness and swelling on the dorsum of the foot but the ankle and the underside of the foot do have some more notable improvement, still no signs of abscess or necrosis iv site ok Blood cultures were ordered in the ER, so far pending with no growth Objective: Vital Signs Temp Pulse Resp BP Pulse Ox 36.9 C 83 15 120/64 91 L 01/02/18 07:41 01/02/18 07:41 01/02/18 07:41 01/02/18 07:41 01/02/18 07:41 Laboratory Results 01/01/18 08:00 01/01/18 08:00 01/01/18 01/02/18 01/03/18 06:59 06:59 06:59 Intake Total 1065 Output Total 8730 Balance -185 ICD10 Worksheet Patient Problems: Problems Problem Status Onset Cellulitis Acute Alcohol intoxication Acute Closed head injury Acute Scalp abrasion Acute
[2018-01-02] MEDS: NAPROXEN SODIUM 220 MG TAB PO SCH ×3 (10:04→21:01)
[2018-01-02] MEDS: traMADol 50 MG TAB PO PRN ×2 (10:04→22:23)
--- NOTE | 2018-01-02 12:20 | PDMN ---
Medical Necessity Medical necessity: Pt meets IP criteria per MD; est los >2 mn for eval/tx of R foot & ankle cellulitis with an open skin wound between 3rd & 4th toe complicated by fever; admit for further monitoring, IV abx & Wound care consult ; comorbid HTN, body lice, alcohol abuse & homelessness; per H&P & order 01/01/18
[2018-01-02] MEDS: oxyCODONE IR 5 MG TAB PO PRN (18:37)
[2018-01-02] MEDS: NICOTINE 21 MG/24 HR PATCH TD SCH (21:01)
[2018-01-03] MEDS: ceFAZolin 2 GM/DEXTROSE 100 ML IV SCH ×3 (01:48→16:11)
[2018-01-03] MEDS: oxyCODONE IR 5 MG TAB PO PRN (01:48)
[2018-01-03] MEDS: NAPROXEN SODIUM 220 MG TAB PO SCH ×3 (09:18→20:59)
[2018-01-03] MEDS: THIAMINE HCL 100 MG TAB PO SCH (09:18)
[2018-01-03] MEDS: traMADol 50 MG TAB PO PRN (09:18)
[2018-01-03] MEDS: MULTIVITAMINS 1 EACH TAB PO SCH (09:18)
[2018-01-03] MEDS: ENOXAPARIN 40 MG/0.4 ML SYR SC SCH (09:19)
[2018-01-03] MEDS: NICOTINE 21 MG/24 HR PATCH TD SCH (09:19)
--- NOTE | 2018-01-03 17:01 | WOCRNPDOC ---
WOCRN Advanced Assessment Note - Skin Integrity Problem, Advanced Assess Right Fourth Toe Dressing Description: Shadowed Exudate Amount: Moderate Exudate Color: Reddish/Yellow Exudate Characteristic(s): Serosanguinous Integumentary Issue Intervention: Dressing Removed Sonia Wound Tissue: Blanching, Erythema, Xerotic, Hyperkeratotic Wound Bed Color: Red, Yellow, White Wound Bed Constitution: Granulation Tissue (60%), Undermining (10-2 o'clock 0.4cm), Adhered Slough (40%) Wound Edges: Not Attached Site Measurement - Head-to-Toe Length X Width X Depth (cm): 0.5x1.2x0.5 Skin Integrity Problem Comment: Gauze removed and wound bed visualized. Wound in soft tissue and not on bone, so likely friction and moisture related wound. Patient stated that he is homeless and wears boots all the time that are ill fitting and too tight on his toes. Patient denied spending time in the redding. Patient also stated that his boots are too small, and that he wears size 9. Deepest part of the wound is slough filled and is very close to the bone. Recommend podiatry consult as necrotic area appears to underming the granulation tissue and is concerning for a more extensive area of necrosis underneath the area of granulation. Sadia LOCK recommended to Dr. Mcgill for podiatry consult. Zoie BACON in room. Wound care will follow up Monday. Query osteomyelitis.
--- NOTE | 2018-01-03 18:44 | HOSPPROG ---
Hospitalist Progress Note Assessment/Plan: DIAGNOSES: # acute cellulitis of the right foot and ankle complicated by fever # corn between the 3rd and 4th toes of the right foot leading to open skin wound which will need tending # homelessness, unable to manage wound care on his own sufficiently # alcohol abuse, felt unlikely to have acute severe withdrawal but likely with vitamin deficiencies malnutrition PLANS: * continue IV Ancef at this time with cultures pending * Keep leg elevated * Wound care will need to be ongoing; * Will add some nonsteroidal anti-inflammatory and tramadol for pain * Increase activity as able * continue thiamin replacement at this time * SUBJECTIVE: Some improvement in pain, no fever symptoms Appetite good eating well OBJECTIVE Vitals reviewed: No fever, otherwise stable vitals Exam: alert oriented skin warm dry color ok resps not labored lungs clear BSs heart regular abd soft nondistended nontender, bowel sounds present limbs: Some improvement in the redness and swelling on the dorsum and medial aspect of the foot, but the lateral foot and ankle and the underside of the foot remain quite swollen with redness heat and tenderness, still no evidence of necrosis or abscess; iv site ok Blood cultures were ordered in the ER, so far pending with no growth Objective: Vital Signs Temp Pulse Resp BP Pulse Ox 37.2 C 68 16 120/75 95 01/03/18 16:00 01/03/18 16:00 01/03/18 16:00 01/03/18 16:00 01/03/18 16:00 Laboratory Results 01/01/18 08:00 01/01/18 08:00 01/02/18 01/03/18 01/04/18 06:59 06:59 06:59 Intake Total 1065 150 Output Total 1250 450 Balance -185 150 -450 ICD10 Worksheet Patient Problems: Problems Problem Status Onset Cellulitis Acute Alcohol intoxication Acute Closed head injury Acute Scalp abrasion Acute
[2018-01-03] MEDS: ARIPiprazole 5 MG TAB PO SCH (21:00)
[2018-01-04] MEDS: traMADol 50 MG TAB PO PRN ×2 (01:29→09:50)
[2018-01-04] MEDS: ceFAZolin 2 GM/DEXTROSE 100 ML IV SCH ×3 (01:29→17:09)
[2018-01-04] MEDS: ENOXAPARIN 40 MG/0.4 ML SYR SC SCH (09:46)
[2018-01-04] MEDS: NAPROXEN SODIUM 220 MG TAB PO SCH ×3 (09:46→21:32)
[2018-01-04] MEDS: MULTIVITAMINS 1 EACH TAB PO SCH (09:46)
[2018-01-04] MEDS: THIAMINE HCL 100 MG TAB PO SCH (09:46)
[2018-01-04] MEDS: NICOTINE 21 MG/24 HR PATCH TD SCH (09:47)
[2018-01-04] MEDS: ARIPiprazole 5 MG TAB PO SCH (09:47)
--- NOTE | 2018-01-04 13:09 | HOSPPROG ---
Hospitalist Progress Note Assessment/Plan: Patient is a 57-year-old gentleman who was homeless. He said a few episodes of lice. He presented to the emergency room because he was having increasing pain and swelling around his right 4th toe and right foot which became swollen and painful. He thought he was having infections who came to the emergency room for further evaluation. He has a history of drinking and uses a small amount of cannabis but does not use street or IV drugs. Today is my 1st encounter with the patient. Reviewed his history with Dr. Mcgill who has been caring for him # acute cellulitis of the right foot and ankle complicated by fever -on Ancef -pain due to this, added anti-inflammatories and tramadol -looks overall good today # corn between the 3rd and 4th toes of the right foot leading to open skin -message left for podiatry, Dr Brown # homelessness # alcohol abuse -on thiamine and multivitamins # sleepiness -patient has had recent weight loss -says he has access to food and this is new -check a TSH #Plan: message left for podiatry, gave my cell #. Unclear if he has any underlying infection. Subjective: Carter said he's tired and wants to sleep. Objective: Vital Signs Temp Pulse Resp BP Pulse Ox 36.6 C 57 L 18 106/60 90 L 01/04/18 08:32 01/04/18 08:32 01/04/18 08:32 01/04/18 08:32 01/04/18 08:32 Laboratory Results 01/01/18 08:00 01/01/18 08:00 01/03/18 01/04/18 01/05/18 05:59 05:59 05:59 Intake Total 150 Output Total 450 625 Balance 150 -450 -625 - Physical Exam Constitutional: chronically ill appearing, unkempt, other (thin) Eyes: PERRL Ears, Nose, Mouth, Throat: hearing normal Cardiovascular: regular rate and rhythym Respiratory: no respiratory distress Skin: warm Neurologic: AAOx3 Psychiatric: interacting appropriately ICD10 Worksheet Patient Problems: Problems Problem Status Onset Cellulitis Acute Alcohol intoxication Acute Closed head injury Acute Scalp abrasion Acute
--- NOTE | 2018-01-04 13:52 | ASMTCMCOM ---
CM Note CM Note Notes: Pt still on IV Ancef for foot cellulitis and receiving wound care. Pt may need a [facility] retirement bed if interested and has no retirement bed restrictions. CM will continue to follow. Date Signed: 01/04/2018 01:51 PM Electronically Signed By:PEPITO Kaufman
[2018-01-05] MEDS: traMADol 50 MG TAB PO PRN ×2 (01:13→19:18)
[2018-01-05] MEDS: ceFAZolin 2 GM/DEXTROSE 100 ML IV SCH ×3 (01:13→16:11)
[2018-01-05] MEDS: NICOTINE 21 MG/24 HR PATCH TD SCH (07:58)
[2018-01-05] MEDS: ENOXAPARIN 40 MG/0.4 ML SYR SC SCH (07:58)
[2018-01-05] MEDS: NAPROXEN SODIUM 220 MG TAB PO SCH ×3 (07:59→22:42)
[2018-01-05] MEDS: THIAMINE HCL 100 MG TAB PO SCH (07:59)
[2018-01-05] MEDS: ARIPiprazole 5 MG TAB PO SCH (08:00)
[2018-01-05] MEDS: MULTIVITAMINS 1 EACH TAB PO SCH (08:00)
--- NOTE | 2018-01-05 09:51 | HOSPPROG ---
Hospitalist Progress Note Assessment/Plan: Patient is a 57-year-old gentleman who was homeless. He said a few episodes of lice. He presented to the emergency room because he was having increasing pain and swelling around his right 4th toe and right foot which became swollen and painful. He thought he was having infections who came to the emergency room for further evaluation. He has a history of drinking and uses a small amount of cannabis but does not use street or IV drugs. # acute cellulitis of the right foot and ankle complicated by fever -on Ancef -pain due to this, added anti-inflammatories and tramadol -looks overall good today # corn between the 3rd and 4th toes of the right foot leading to open skin -also has a necrotic area between right little toe and next toe, Dr Grewal w Podiatry to see later today to see if this needs to be debrided # homelessness -[facility] # alcohol abuse -on thiamine and multivitamins # sleepiness -patient has had recent weight loss -says he has access to food and this is new -TSH is stable #Plan: Dr Grewal to see later today, appreciate her involvement. Could dc later today or tomorrow on a few days of antibiotics. Spoke w CM about getting him shoes. Subjective: Carter is feeling better but upset he hasn't seen a consignee. Objective: Vital Signs Temp Pulse Resp BP Pulse Ox 36.4 C 53 L 12 104/68 90 L 01/05/18 07:25 01/05/18 07:25 01/05/18 07:25 01/05/18 07:25 01/05/18 07:25 Laboratory Results 01/01/18 08:00 01/01/18 08:00 01/04/18 01/05/18 01/06/18 05:59 05:59 05:59 Output Total 450 1400 Balance -450 -1400 - Physical Exam Constitutional: appears nourished, not in pain Eyes: PERRL Ears, Nose, Mouth, Throat: hearing normal Respiratory: no respiratory distress Skin: warm, other (redness has almost completely resolved, darkened area between little toe and next toe) Musculoskeletal: full muscle strength Neurologic: AAOx3 Psychiatric: interacting appropriately ICD10 Worksheet Patient Problems: Problems Problem Status Onset Cellulitis Acute Alcohol intoxication Acute Closed head injury Acute Scalp abrasion Acute
[2018-01-05] MEDS ORDERED: GADOBUTROL 10 ML VIAL IVP ONE (14:38)
[2018-01-05] MEDS: ACETAMINOPHEN 325 MG TAB PO PRN (16:12)
--- NOTE | 2018-01-05 16:36 | ASMTCMCOM ---
CM Note CM Note Notes: Early today there was a chance pt would d/c, senior care bed reserved. Podiatry consulted and ordered MRI to rule out osteomyelitis. If pt has osteo he may need toe amputation. Pt shoes are too small, he reports he needs a size 10 shoe which the [facility] loan [facility] does not have so pt will be given an ortho shoe. Date Signed: 01/05/2018 04:36 PM Electronically Signed By:PEPITO Kaufman
[2018-01-06] MEDS: ceFAZolin 2 GM/DEXTROSE 100 ML IV SCH ×3 (02:29→17:23)
[2018-01-06] MEDS: ARIPiprazole 5 MG TAB PO SCH ×3 (09:07→13:23)
[2018-01-06] MEDS: ENOXAPARIN 40 MG/0.4 ML SYR SC SCH ×2 (09:07→13:29)
[2018-01-06] MEDS: MULTIVITAMINS 1 EACH TAB PO SCH ×2 (09:08→13:24)
[2018-01-06] MEDS: NAPROXEN SODIUM 220 MG TAB PO SCH ×3 (09:08→17:16)
[2018-01-06] MEDS: NICOTINE 21 MG/24 HR PATCH TD SCH ×2 (09:09→13:23)
[2018-01-06] MEDS: THIAMINE HCL 100 MG TAB PO SCH ×2 (09:09→13:24)
[2018-01-06] MEDS ORDERED: BUPIVACAINE 0.5% 30 ML SDV ONE (09:34)
[2018-01-06] MEDS ORDERED: ROPIVACAINE HCL 150 MG/30 ML INJ ONE ×2 (09:34→11:31)
[2018-01-06] MEDS ORDERED: LIDOCAINE 1% 300 MG/30 ML SDV ONE (09:34)
[2018-01-06] MEDS ORDERED: BACITRACIN 50,000 UNITS/10 ML SYR IRR ONE (09:35)
[2018-01-06] MEDS ORDERED: MIDAZOLAM 2 MG/2 ML VIAL IVP ONE (10:13)
--- NOTE | 2018-01-06 10:13 | PDANEPAE ---
ANE History of Present Illness Infected right toe ANE Past Medical History - Pulmonary History Hx Oxygen in Use at Home: No Hx Sleep Apnea: Yes Sleep Apnea Screening Result - Last Documented: Positive - Endocrine History Hx Diabetes: No - Chronic Pain History Chronic Pain: Yes ANE Review of Systems Review of Systems: ANE Patient History - Allergies Allergies/Adverse Reactions: No Known Allergies Allergy (Verified 01/01/18 07:15) - Home Medications Home medications: home medication list seen and reviewed Home Medications: ARIPiprazole [Abilify 5 mg (*)] 5 mg PO DAILY 01/01/18 [Last Taken Unknown] - NPO status NPO Since - Liquids (Date): 01/06/18 NPO Since - Liquids (Time): 09:29 NPO Since - Solids (Date): 01/05/18 NPO Since - Solids (Time): 23:55 - Anes Hx Anes Hx: no prior problems - Smoking Hx Smoking Status: Heavy smoker - Alcohol Use Alcohol Use: Heavy ANE Labs/Vital Signs - Labs Result Diagrams: 01/01/18 08:00 01/01/18 08:00 - Vital Signs Blood Pressure: 124/69 Heart Rate: 57 Respiratory Rate: 16 O2 Sat (%): 91 Height: 182.88 cm Weight: 68.039 kg ANE Physical Exam - Airway Mallampati Score: Class 2 Mouth exam: poor dentition (Multiple missing teeth including upper incisors) - Pulmonary Pulmonary: no respiratory distress - Cardiovascular Cardiovascular: regular rate and rhythym - ASA Status ASA Status: II, E ANE Anesthesia Plan Anesthesia Plan: MAC
[2018-01-06] MEDS ORDERED: LIDOCAINE 2% 5 ML SDV ONE (10:24)
[2018-01-06] MEDS ORDERED: PROPOFOL 200 MG/20 ML VIAL ONE ×3 (10:24→10:51)
[2018-01-06] MEDS ORDERED: VANCOMYCIN 1 GM VIAL ONE (10:25)
[2018-01-06] MEDS ORDERED: fentaNYL 100 MCG/2 ML INJ IVP PRN (10:55)
[2018-01-06] MEDS ORDERED: ONDANSETRON 4 MG/2 ML VIAL IVP PRN (10:55)
[2018-01-06] MEDS ORDERED: HYDROmorphONE/DILAUDID 2 MG/ML INJ IVP PRN (10:55)
[2018-01-06] MEDS ORDERED: NALOXONE HCL 0.4 MG/ML INJ IVP PRN (10:55)
--- NOTE | 2018-01-06 11:27 | POSTANESTH ---
Post Anesthetic Evaluation Cardiovascular Status: Similar to Pre-Op Cond Respiratory Status: Similar to Pre-op Cond. Level of Consciousness/Mental Status: Alert and Oriented, Mildly Sleepy, Arousable Pain Control: Adequate, Prn Tx Ordered Nausea/Vomiting Control: Adequate, Prn Tx Ordered Complications Possibly Related to Anesthesia: None Noted
--- NOTE | 2018-01-06 11:44 | POSTOPPROG ---
Post Op Note Date of Operation: 01/06/18 Surgeon: Ernestine Grewal Office Workforce Planner: none Anesthesiologist: Dr. Jani Culver . MAC Anesthesia: Other (Specify) (local with MAC) Pre-op Diagnosis: osteomyelitis 4th toe right foot Post-op Diagnosis: osteomyelitis 4th toe right foot Indication: infection. osteomyelitis. open ulceration 4th toe right foot Procedure: [id number] toe right foot Findings: purulent drainage, open wound. Inf/Abcess present in the surg proc area at time of surgery?: Yes Depth: Deep Incisional (Fascial) EBL: Minimal Complications: none Specimen(s): culture of toe and toe sent to pathology for gross and micro exam
[2018-01-06] MEDS: ACETAMINOPHEN 325 MG TAB PO PRN (13:23)
[2018-01-06] MEDS: traMADol 50 MG TAB PO PRN ×3 (13:29→21:14)
--- NOTE | 2018-01-06 13:41 | HOSPPROG ---
Hospitalist Progress Note Assessment/Plan: Patient is a 57-year-old gentleman who is homeless. He presented to the emergency room because he was having increasing pain and swelling around his right 4th toe and right foot which became swollen and painful. He thought he was having infections and came to the emergency room for further evaluation. He has a history of drinking and uses a small amount of cannabis but does not use street or IV drugs. First encounter, chart reviewed. D/W Dr Perrin. # acute cellulitis of the right foot and ankle complicated by fever -on Ancef -pain due to this, anti-inflammatories and tramadol # Osteomylitis of 4th toe of the right foot -POD #0 for amputation -cont abx # homelessness -will need bed at nursing home # alcohol abuse -on thiamine and multivitamins # sleepiness -patient has had recent weight loss -says he has access to food and this is new -TSH is stable #Plan: appreciate Dr Perrin involvement. Will D/W CM Cont to watch Subjective: Up in bed. Some throbbing. Eating. No other issues. Objective: Vital Signs Temp Pulse Resp BP Pulse Ox 36.6 C 56 L 16 123/73 H 96 01/06/18 13:33 01/06/18 13:33 01/06/18 13:33 01/06/18 13:33 01/06/18 13:33 Microbiology 01/05/18 12:40 Gram Stain - Final Toe - Other 01/01/18 08:40 Blood Culture - Final Blood 01/01/18 08:00 Blood Culture - Final Blood Laboratory Results 01/01/18 08:00 01/01/18 08:00 01/05/18 01/06/18 01/07/18 05:59 05:59 05:59 Intake Total 150 540 Output Total 1400 1050 655 Balance -1400 -900 -115 - Physical Exam Constitutional: chronically ill appearing, uncomfortable, unkempt Eyes: PERRL, anicteric sclera, EOMI Ears, Nose, Mouth, Throat: moist mucous membranes, hearing normal, ears appear normal Cardiovascular: regular rate and rhythym, No JVD, No tachycardia, No edema Respiratory: no respiratory distress, no rales or rhonchi, reduced air movement Gastrointestinal: No tenderness, No ascites, No guarding, No distension Skin: warm, no rashes or abrasions, No mottled Musculoskeletal: pain with ROM, muscular tenderness, generalized weakness Neurologic: AAOx3 Psychiatric: not anxious, not encephalopathic, poor insight ICD10 Worksheet Patient Problems: Problems Problem Status Onset Scalp abrasion Acute Closed head injury Acute Alcohol intoxication Acute Cellulitis Acute
--- NOTE | 2018-01-06 19:37 | GOP ---
[f rep st] OPERATIVE REPORT DATE OF OPERATION: 01/06/2018 SURGEON: Ernestine Grewal DPM ANESTHESIA: Light general/MAC. ANESTHESIOLOGIST: Ronan Culver MD. PREOPERATIVE DIAGNOSIS: Osteomyelitis, cellulitis, 4th digit, right foot. POSTOPERATIVE DIAGNOSIS: Osteomyelitis, cellulitis, 4th digit, right foot. PROCEDURE PERFORMED: Amputation 4th digit, right foot. FINDINGS: ulceration extending to bone 4th toe. INDICATIONS: 57-year-old homeless male, reporting pain in the 4th toe. He was admitted to [facility] for cellulitis on the right foot. Ancef initiated. Suspecting peripheral neuropathy from alcohol. Upon examination open wound lateral aspect of the 4th digit, probes to bone, wound measuring approximately 5-6 mm in size, with subtle purulent drainage, surrounding hyperkeratosis, 4th digit sausage toe appearance with localized edema and erythema. No advanced cellulitis. MRI study completed. Finding suggesting osteomyelitis of the proximal phalanx. Surgery indicated involving amputation of the 4th digit. DESCRIPTION OF PROCEDURE: Patient was brought into the operating room, placed on the operating table in the supine position. Intravenous light general sedation administered by the anesthesiologist. A posterior tibial and peripheral nerve block was obtained utilizing a total of 15 cc of one-to-one to 1 mix of 1% lidocaine plain, Marcaine 0.5%, and ropivacaine 0.5%. The lower extremity was prepped and draped in the usual sterile manner. The limb was elevated and exsanguinated with an Esmarch bandage and ankle tourniquet was inflated to 230 mmHg, and the procedure was begun. Webril padding utilized under the ankle cuff. Amputation 4th digit; attention was directed to the base of the 4th digit where a racquet-type incision was created beginning dorsally and extending plantar distally and then again back proximally. The incision was carefully deepened with care of neurovascular structures and then clamped and cauterized bleeders. The 4th digit was disarticulated from the 4th metatarsophalangeal joint, and the digit was removed from the wound in toto and sent to Pathology for gross and microscopic examination. Upon examining the toe, there was tracking along the long flexor tendon sheath plantarly, with drainage noted. Site was swabbed and sent for cultures. Wound was copiously irrigated with bacitracin irrigation and vancomycin solution. Proximal tissue intact with no purulent drainage. No necrotic tissue noted proximal aspect of the wound. Distal flap was brought over dorsally, and the skin incision was closed with 4-0 Prolene in a horizontal mattress and simple interrupted suture manner. Dressings included Xeroform, 4 x 4, reinforced with Megan tape, and an Deepak bandage. Ankle tourniquet was released prior to closure of the wound and a normal hyperemic response was noted to all digits. There were no active bleeders. The patient tolerated the procedure and anesthesia well, left the operating room with vital signs stable and vascular status intact to all digits. There were no intraoperative complications. In postoperative recovery, the patient was doing well. The 5th digit with some purple discoloration. The bandage was loosened and the color returned to a more normal pink. There were no concerns. He is to return to the hospital floor and resume all medications as prior to surgery. He was instructed to keep dressings clean and dry, not to get wet. Note prior to the procedure, I reviewed with him the procedure being performed. I asked him to voice to me his understanding of the plan and he repeated to me procedure being performed and what his expectations are for postoperative recovery to ensure he understands that the wound needs to be kept clean and dry for the next 2 weeks. Prognosis good. /[id number]/MODL MTDD
[2018-01-07] MEDS: ceFAZolin 2 GM/DEXTROSE 100 ML IV SCH ×3 (01:28→17:28)
[2018-01-07] MEDS: NICOTINE 21 MG/24 HR PATCH TD SCH (08:39)
[2018-01-07] MEDS: ACETAMINOPHEN 325 MG TAB PO PRN ×2 (08:39→14:53)
[2018-01-07] MEDS: THIAMINE HCL 100 MG TAB PO SCH (08:40)
[2018-01-07] MEDS: MULTIVITAMINS 1 EACH TAB PO SCH (08:40)
[2018-01-07] MEDS: traMADol 50 MG TAB PO PRN ×3 (08:40→21:19)
[2018-01-07] MEDS: ENOXAPARIN 40 MG/0.4 ML SYR SC SCH (08:41)
[2018-01-07] MEDS: ARIPiprazole 5 MG TAB PO SCH (08:41)
--- NOTE | 2018-01-07 11:32 | HOSPPROG ---
Hospitalist Progress Note Assessment/Plan: Patient is a 57-year-old gentleman who is homeless. He presented to the emergency room because he was having increasing pain and swelling around his right 4th toe and right foot which became swollen and painful. He thought he was having infections and came to the emergency room for further evaluation. He has a history of drinking and uses a small amount of cannabis but does not use street or IV drugs. # acute cellulitis of the right foot and ankle complicated by fever -on Ancef -pain due to this, anti-inflammatories and tramadol # Osteomylitis of 4th toe of the right foot -POD #1 for amputation -cont abx # homelessness -will need bed at [facility] # alcohol abuse -on thiamine and multivitamins # sleepiness -patient has had recent weight loss -says he has access to food and this is new -TSH is stable #Plan: appreciate Dr Perrin involvement. Will D/W CM Cont to watch Subjective: Feeling fine. Still some throbbing. Objective: Vital Signs Temp Pulse Resp BP Pulse Ox 36.6 C 52 L 14 108/65 90 L 01/07/18 07:40 01/07/18 07:40 01/07/18 07:40 01/07/18 07:40 01/07/18 07:40 Microbiology 01/05/18 12:40 Gram Stain - Final Toe - Other 01/06/18 10:55 Gram Stain - Final Toe - Tissue 01/06/18 10:55 Mycobacterial Smear (CONSTANTINO) - Final Toe - Tissue 01/01/18 08:40 Blood Culture - Final Blood 01/01/18 08:00 Blood Culture - Final Blood Laboratory Results 01/01/18 08:00 01/01/18 08:00 01/06/18 01/07/18 01/08/18 05:59 05:59 05:59 Intake Total 150 1340 Output Total 1050 1405 300 Balance -900 -65 -300 - Physical Exam Constitutional: appears nourished, uncomfortable Eyes: PERRL, anicteric sclera Ears, Nose, Mouth, Throat: moist mucous membranes, hearing normal Cardiovascular: No JVD, No edema Respiratory: no respiratory distress, reduced air movement Gastrointestinal: No tenderness, No ascites Skin: warm, erythema Musculoskeletal: pain with ROM, muscular tenderness, generalized weakness Neurologic: AAOx3 Psychiatric: interacting appropriately, not anxious, not encephalopathic ICD10 Worksheet Patient Problems: Problems Problem Status Onset Scalp abrasion Acute Closed head injury Acute Alcohol intoxication Acute Cellulitis Acute
--- NOTE | 2018-01-07 15:28 | ASMTCMCOM ---
CM Note CM Note Notes: Patient is POD #1 R 4th toe amputation by podiatry. ID will consult tomorrow re: antibiotic therapy and wound care. Patient is homeless, so we'll make sure we discharge him with what he needs to return to the streets (Custodial bed, ortho shoe, etc). Case Management will follow. Date Signed: 01/07/2018 03:27 PM Electronically Signed By:Caitlin Killian RN
[2018-01-08] MEDS: ceFAZolin 2 GM/DEXTROSE 100 ML IV SCH ×3 (03:42→16:44)
[2018-01-08] MEDS: THIAMINE HCL 100 MG TAB PO SCH (09:37)
[2018-01-08] MEDS: ARIPiprazole 5 MG TAB PO SCH (09:38)
[2018-01-08] MEDS: MULTIVITAMINS 1 EACH TAB PO SCH (09:40)
[2018-01-08] MEDS: ENOXAPARIN 40 MG/0.4 ML SYR SC SCH (09:41)
[2018-01-08] MEDS: NICOTINE 21 MG/24 HR PATCH TD SCH (09:41)
--- NOTE | 2018-01-08 11:35 | HOSPPROG ---
Hospitalist Progress Note Assessment/Plan: Patient is a 57-year-old gentleman who is homeless. He presented to the emergency room because he was having increasing pain and swelling around his right 4th toe and right foot which became swollen and painful. He thought he was having infections and came to the emergency room for further evaluation. He has a history of drinking and uses a small amount of cannabis but does not use street or IV drugs. # acute cellulitis of the right foot and ankle complicated by fever -on Ancef -pain due to this, anti-inflammatories and tramadol # Osteomylitis of 4th toe of the right foot -POD #2 for amputation -cont abx, path pending -consider ID consult pending path margins # homelessness -will need bed at alf # alcohol abuse -on thiamine and multivitamins # sleepiness -patient has had recent weight loss -says he has access to food and this is new -TSH is stable #Plan: appreciate Dr Perrin involvement. D/W CM Cont to watch Subjective: Up in bed. Some foot pain. No other concerns. Objective: Vital Signs Temp Pulse Resp BP Pulse Ox 37.1 C 50 L 16 119/68 91 L 01/08/18 08:00 01/08/18 08:00 01/08/18 08:00 01/08/18 08:00 01/08/18 08:00 Microbiology 01/06/18 10:55 Gram Stain - Final Toe - Tissue 01/05/18 12:40 Gram Stain - Final Toe - Other Wound Culture - Final Staphylococcus Aureus 01/06/18 10:55 Mycobacterial Smear (CONSTANTINO) - Final Toe - Tissue Laboratory Results 01/01/18 08:00 01/01/18 08:00 01/07/18 01/08/18 01/09/18 05:59 05:59 05:59 Intake Total 1340 800 Output Total 1405 2250 Balance -65 -1450 - Physical Exam Constitutional: chronically ill appearing, unkempt, cachectic Eyes: PERRL, anicteric sclera, EOMI Ears, Nose, Mouth, Throat: moist mucous membranes, hearing normal, ears appear normal Cardiovascular: No JVD, No edema Respiratory: no respiratory distress, no rales or rhonchi, reduced air movement Gastrointestinal: No tenderness, No ascites Skin: warm, No erythema, No rash Musculoskeletal: no joint effusions, muscular tenderness, generalized weakness Neurologic: AAOx3 Psychiatric: poor insight, poor judgement, poor memory ICD10 Worksheet Patient Problems: Problems Problem Status Onset Scalp abrasion Acute Closed head injury Acute Alcohol intoxication Acute Cellulitis Acute
[2018-01-08] MEDS: traMADol 50 MG TAB PO PRN ×2 (16:07→22:38)
[2018-01-09] MEDS: ceFAZolin 2 GM/DEXTROSE 100 ML IV SCH ×3 (00:24→16:18)
--- NOTE | 2018-01-09 08:56 | HOSPPROG ---
Hospitalist Progress Note Assessment/Plan: Patient is a 57-year-old gentleman who was homeless. He said a few episodes of lice. He presented to the emergency room because he was having increasing pain and swelling around his right 4th toe and right foot which became swollen and painful. He thought he was having infections who came to the emergency room for further evaluation. He has a history of drinking and uses a small amount of cannabis but does not use street or IV drugs. # acute cellulitis of the right foot and ankle complicated by fever -on Ancef # Osteomyelitis of 4th toe of the right foot -MSSA -POD #3 for amputation -will need f/u with Dr Grewal # homelessness -will need bed at [facility] # alcohol abuse -on thiamine and multivitamins -no s/sx of withdrawals # sleepiness -resolved #Plan:will ask Dr Ball to evaluate antibiotics and how long Carter should be on them. Appreciate her involvement. Subjective: Carter is feeling better today. Objective: Vital Signs Temp Pulse Resp BP Pulse Ox 36.9 C 56 L 16 107/62 92 01/09/18 08:00 01/09/18 08:00 01/09/18 08:00 01/09/18 08:00 01/09/18 08:00 Microbiology 01/06/18 10:55 Gram Stain - Final Toe - Tissue 01/05/18 12:40 Gram Stain - Final Toe - Other Wound Culture - Final Staphylococcus Aureus Laboratory Results 01/01/18 08:00 01/01/18 08:00 01/08/18 01/09/18 01/10/18 05:59 05:59 05:59 Intake Total 800 900 Output Total 2250 1000 300 Balance -1450 -100 -300 - Physical Exam Constitutional: no apparent distress, not in pain, chronically ill appearing Eyes: PERRL Ears, Nose, Mouth, Throat: hearing normal Cardiovascular: regular rate and rhythym Respiratory: no respiratory distress Skin: warm, other (right foot in dressing) Neurologic: AAOx3 Psychiatric: interacting appropriately ICD10 Worksheet Patient Problems: Problems Problem Status Onset Cellulitis Acute Alcohol intoxication Acute Closed head injury Acute Scalp abrasion Acute
[2018-01-09] MEDS: traMADol 50 MG TAB PO PRN ×2 (09:29→16:17)
[2018-01-09] MEDS: THIAMINE HCL 100 MG TAB PO SCH (09:29)
[2018-01-09] MEDS: ARIPiprazole 5 MG TAB PO SCH (09:29)
[2018-01-09] MEDS: MULTIVITAMINS 1 EACH TAB PO SCH (09:30)
[2018-01-09] MEDS: ENOXAPARIN 40 MG/0.4 ML SYR SC SCH (09:31)
[2018-01-09] MEDS: NICOTINE 21 MG/24 HR PATCH TD SCH (09:31)
--- NOTE | 2018-01-09 18:25 | GCON ---
[f rep st] CONSULTATION INFECTIOUS DISEASE CONSULTATION DATE OF CONSULTATION: 01/09/2018 Provider requesting consultation is Alessandra Garcia. REASON FOR CONSULTATION: Duration of antibiotic therapy for right toe infection. HISTORY OF PRESENT ILLNESS: A 57-year-old male who has been homeless for 3 years, developed progressive right foot pain. Reports that he could have injured his foot related to his shoes or stubbed his toe while he was intoxicated and be unaware. He states that on admission his whole foot was red and that is much improved. The patient was admitted on 01/01/2018, and started on Ancef in the emergency room. Due to clinical appearance of the toe and ongoing fever, eventually MRI was obtained on January 05, which showed osteomyelitis of the 4th digit without involving the associated metatarsal on the right. Podiatry was consulted and patient underwent right 4th toe amputation on January 06. Cultures were obtained, which showed MSSA. Today, ID is asked about duration of therapy. PAST MEDICAL HISTORY: Alcoholism, hypertension. FAMILY HISTORY: Unknown. SOCIAL HISTORY: Heavy alcohol. Tobacco, 1 pack a day since his teens. He has been homeless x3 years. Previously he worked in the [employer] industry. MEDICATIONS: Include Abilify, cefazolin 2 g IV q.8 started 01/01/2018, multivitamin, Nicoderm patch, Zofran, thiamine, tramadol, and Ambien. ALLERGIES: NKDA. REVIEW OF SYSTEMS: The patient has lost 10-20 pounds due to a limited supply of food. A complete 10-point review of systems was performed and is negative except as mentioned in the HPI. PHYSICAL EXAM: VITAL SIGNS: Blood pressure 100/60, heart rate 60, respiratory rate 14, saturation 92% on room air, temperature 37.1. HEENT: Moist mucous membranes. No oral ulcerations. Poor dentition. NECK: Supple. No lymphadenopathy. RESPIRATORY: Breathing easy. No crackles or wheezes. CARDIOVASCULAR: Borderline bradycardia. No murmur. ABDOMEN: Soft, nontender. EXTREMITIES: His right lower extremity with obvious amputation at the 4th digit with stitches still in place. Mild anoop appearance, but no acute cellulitic changes on the foot. Minimal drainage. Mild tenderness. Decreased barely palpable pulses in the dorsalis pedis distribution. Normal capillary refill. Patient had minimal hair growth of his lower extremities, which he says has been longstanding. NEUROLOGICAL: Patient is alert and oriented x4. Had fluent speech, was cooperative, and his gait was stable. LABORATORY DATA: On 01/01/2018, white count 14, hematocrit 287, 84% neutrophils. Creatinine 0.7. Labs are ordered for tomorrow morning. Blood cultures 01/01/2018, are negative, 2 sets, and OR cultures showed MSSA. ASSESSMENT AND PLAN: This is a 57-year-old male with longstanding tobacco abuse and is homeless who presents with a traumatic injury of his right fourth toe, subsequently infection, and underlying osteomyelitis of 4th phalanx based on MRI findings. MRI suggested osteomyelitis limited to the 4th digit which now has been amputated. 1. Likely can discontinue IV antibiotics and discharge the patient on a few more days of oral antibiotics for approximately 1 week after amputation, which would be stop date 01/13/2018. 2. Would like to confirm with Podiatry clinical impression based on imaging and clinical response before discharge and have left a voicemail with special agent. 3. Agree with repeating labs tomorrow to assess response. /[id number]/MODL MTDD
[2018-01-10] MEDS: ceFAZolin 2 GM/DEXTROSE 100 ML IV SCH ×2 (00:58→09:26)
[2018-01-10] MEDS: traMADol 50 MG TAB PO PRN (01:40)
[2018-01-10 05:23] LABS: PLATELET COUNT 318 10^3/uL (150-400)
[2018-01-10 07:42] VITALS: BP 102/63
--- NOTE | 2018-01-10 09:30 | HOSPPROG ---
Hospitalist Progress Note Assessment/Plan: Patient is a 57-year-old gentleman who was homeless. He said a few episodes of lice. He presented to the emergency room because he was having increasing pain and swelling around his right 4th toe and right foot which became swollen and painful. He thought he was having infections who came to the emergency room for further evaluation. He has a history of drinking and uses a small amount of cannabis but does not use street or IV drugs. # acute cellulitis of the right foot and ankle complicated by fever -on Ancef -dc w Augmentin # Osteomyelitis of 4th toe of the right foot -MSSA -POD #4 for amputation -will need f/u with Dr Grewal -has an appointment w her tomorrow # homelessness -will need bed at longterm # alcohol abuse -on thiamine and multivitamins -no s/sx of withdrawals # sleepiness -resolved #Plan:dc, bed reserved at the longterm, appreciate Dr Ball Subjective: Carter is feeling fine, no complaints. Objective: Vital Signs Temp Pulse Resp BP Pulse Ox 36.4 C 48 L 14 102/63 93 01/10/18 07:41 01/10/18 07:41 01/10/18 07:41 01/10/18 07:41 01/10/18 07:41 Microbiology 01/06/18 10:55 Gram Stain - Final Toe - Tissue 01/06/18 10:55 Mycobacterial Smear (CONSTANTINO) - Final Toe - Tissue Laboratory Results 01/10/18 04:35 01/10/18 04:35 01/09/18 01/10/18 01/11/18 05:59 05:59 05:59 Intake Total 900 100 Output Total 1000 1200 Balance -100 -1100 - Physical Exam Constitutional: no apparent distress, appears nourished, not in pain Eyes: PERRL Ears, Nose, Mouth, Throat: hearing normal Cardiovascular: regular rate and rhythym Respiratory: no respiratory distress Skin: warm Neurologic: AAOx3 Psychiatric: interacting appropriately ICD10 Worksheet Patient Problems: Problems Problem Status Onset Cellulitis Acute Alcohol intoxication Acute Closed head injury Acute Scalp abrasion Acute
[2018-01-10] MEDS: ARIPiprazole 5 MG TAB PO SCH (09:58)
[2018-01-10] MEDS: MULTIVITAMINS 1 EACH TAB PO SCH (09:58)
[2018-01-10] MEDS: THIAMINE HCL 100 MG TAB PO SCH (09:58)
[2018-01-10] MEDS: ENOXAPARIN 40 MG/0.4 ML SYR SC SCH (09:58)
[2018-01-10] MEDS: NICOTINE 21 MG/24 HR PATCH TD SCH (09:58)
--- NOTE | 2018-01-10 10:13 | GDS ---
[f rep st] DISCHARGE SUMMARY DISCHARGE DIAGNOSES: 1. Acute cellulitis of the right foot and ankle. 2. Osteomyelitis of the 4th toe of the right foot. 3. Homelessness. 4. Alcohol abuse. 5. Sleepiness. CONSULTATIONS: Dr. Ernestine Grewal. Dr. Iraida Ball. HISTORY OF PRESENT ILLNESS: Briefly, the patient is a 57-year-old gentleman, who is homeless. He presented to the emergency room with right ankle and foot pain. He was started on Ancef in the emergency room. His toe had a blackened area and an MRI was obtained, which showed osteomyelitis of the 4th digit without involving associated metatarsal on the right. Podiatry was consulted and the patient underwent an amputation on January 06. His cultures grew out MSSA. He was continued treatment with IV Ancef. Today, he will be discharged to the senior care on Augmentin. He has a followup appointment with Dr. Grewal. HOSPITAL COURSE FOR PROBLEM: 1. Acute cellulitis of the right foot and ankle. This is much improved. He was treated with Ancef. 2. Osteomyelitis of the 4th toe on the right foot. He is postop day #4 for amputation. He has a followup appoint with Dr. Grewal tomorrow. This grew out MSSA. We will continue him on antibiotics for several more days. 3. Homelessness. A bed at the senior care has been reserved. 4. Alcohol abuse. He has had no signs or symptoms of alcohol withdrawal. We have talked on multiple occasions about alcohol and the impacts of him being homeless. He has done quite well without it. Hopefully, he will stop drinking. 5. Sleepiness. This resolved. TSH was checked. This is stable. DISCHARGE CONDITION: Stable. VITAL SIGNS: Blood pressure is 102/63, heart rate 48, respiratory rate 14, O2 sats on room air 93%, temperature is 36.4 Celsius. MEDICATIONS AT DISCHARGE: Please see EMR. DISCHARGE INSTRUCTIONS: 1. To follow up with Dr. Grewal tomorrow. 2. Detailed dressing changes have been instructed for him. Greater than 30 minutes discharging and coordinating the patient's care. /[id number]/MODL MTDD
--- NOTE | 2018-01-10 12:06 | ASMTCMCOM ---
CM Note CM Note Notes: Pt medically stable for d/c to [facility]. Spoke with Sanjay at [facility], pt has a reserved bed as long as he brings his discharge paperwork, pt knows this and he spoke with a skilled nursing worker this morning. Pt provided ortho shoe and bus passes. Pt medications filled by [facility] with Medicaid. Date Signed: 01/10/2018 12:05 PM Electronically Signed By:PEPITO Kaufman
== END 2018-01-10 12:20 | disposition home or self-care (01) | DRG 314 ==
LOC: F3N 10:03
PROVIDERS: ADMIT Internal Medicine; ATTEND Internal Medicine
PROC: 0Y6V0Z0 Detachment at Right 4th Toe, Complete, Open Approach (ICD-10-PCS; principal; 2018-01-06 10:00)
DX: M86.671 Other chronic osteomyelitis, right ankle and foot (principal); L03.115 Cellulitis of right lower limb; B95.61 Methicillin susceptible Staphylococcus aureus infection as the cause of diseases classified elsewhere; L84 Corns and callosities; Z59.0 Homelessness; F17.210 Nicotine dependence, cigarettes, uncomplicated; F10.20 Alcohol dependence, uncomplicated
CPT/HCPCS: 96365; 97161-GP; 97165-GO; A9585; J0690; J1650; J2704; J2795; J3370

== ENCOUNTER 2018-12-13 13:24 | Emergency (ER) | payer MEDICAID ==
--- NOTE | 2018-12-13 14:25 | EDPHY ---
General Time Seen by Provider: 12/13/18 13:40 Narrative: CLINICAL IMPRESSION: Right hand abrasions ASSESSMENT/PLAN: 58-year-old intoxicated male on in [facility] hold presents to the emergency department for evaluation of right hand abrasions. Patient has superficial abrasions to the knuckles of the 2nd and 3rd finger with full range of motion, no deep laceration requiring sutures, tetanus reported up-to-date, no evidence of infection. Wounds were treated with antibiotic ointment and bandages and patient was discharged to the [facility] with Librium prepack in stable condition CHIEF COMPLAINT: Alcohol intoxication, right hand abrasion HPI: 58-year-old male presents to the emergency department on an [facility] hold for evaluation of right hand abrasions after falling. Patient has full movement of the hand, reports no pain, reports his tetanus is up-to-date. He reports no other injuries. He is intoxicated but is able to ambulate with a steady gait. PAST MEDICAL HISTORY: Homeless, intoxicated, no significant past medical history reported REVIEW OF SYSTEMS: A full 10 point review of systems was negative except for those mentioned in HPI. PHYSICAL EXAM: General Appearance: Alert, oriented, appropriate, cooperative, dirty, unkempt, smells of alcohol, no acute distress VSS, no hypoxia. Skin: Warm, dry, no rashes, no nodules on palpation. Superficial abrasions to the knuckles of the 2nd and 3rd finger on the right-hand Musculoskeletal: Full range of motion of all fingers to the right hand. MEDICAL DECISION MAKING: Patient was seen independently. Secondary supervising physician at time of evaluation was: Dr. Watkins . Diagnosis: Right hand abrasion, alcohol intoxication. New, requires workup Summary: See Assessment and Plan for summary of ED visit Patient Progress: Stable for discharge to the [facility]. - History Smoking Status: Heavy smoker - Objective Vital Signs: Initial Vital Signs Temperature (C) 36.5 C 12/13/18 13:36 Heart Rate 66 12/13/18 13:36 Respiratory Rate 18 12/13/18 13:36 Blood Pressure 114/85 H 12/13/18 13:36 O2 Sat (%) 94 12/13/18 13:36 O2 Delivery Mode Room Air Allergies/Adverse Reactions: No Known Allergies Allergy (Verified 01/01/18 07:15) Home Medications: Medication Instructions Recorded ARIPiprazole [Abilify 5 mg (*)] 5 mg PO DAILY 01/01/18 Acetaminophen [Tylenol 325mg (*)] 650 mg PO Q4HRS PRN tab 01/10/18 Amoxicillin/Clavulanate Pot 875 mg PO BID #7 tab 01/10/18 [Augmentin 875 MG TAB (*)] Multivitamins [Multivitamin (*)] 1 each PO DAILY tab 01/10/18 Medications Given: Discontinued Medications Chlordiazepoxide (Librium 25 Mg Prepack#6) 1 btl TAKEHOME EDNOW ONE Stop: 12/13/18 14:40 Last Admin: 12/13/18 14:46 Dose: 1 btl Departure - Departure Disposition: Home, Routine, Self-Care Clinical Impression: Abrasion hand Qualifiers: Encounter type: initial encounter Laterality: right Qualified Code(s): S60.511A - Abrasion of right hand, initial encounter Condition: Fair Instructions: Chlordiazepoxide (By mouth), Abrasion (ED) Additional Instructions: Please follow-up with primary care to recheck your hand. The [facility] has walk-in appointments for the homeless at the following days and locations. No appointment is needed. Monday 8-10am at [facility] and 11am-1pm at the [facility] Monday 8-10am at [facility] Monday 8-10am at [facility] 2-4pm at [facility] Monday 8-10am at [facility] Referrals: NONE *PRIMARY CARE P,. [Primary Care Provider] - As per Instructions [facility],. [Clinic] - As per Instructions
[2018-12-13] MEDS ORDERED: CHLORDIAZEPOXIDE 25MG PREPK#6 BTL TAKEHOME ONE (14:39)
[2018-12-13 14:55] VITALS: BP 94/58
== END 2018-12-13 14:56 | disposition home or self-care (01) ==
LOC: EDUNIT#
DX: S60.511A Abrasion of right hand, initial encounter (principal); Z59.0 Homelessness